=== PATIENT | female | born 1980 | race African-American/Black ===

== ENCOUNTER 2020-04-12 08:37 | Emergency (ER) | payer SELFPAY ==
[2020-04-12 10:37] LABS: ALBUMIN 4.4 g/dL (3.5-5.0); ALKALINE PHOSPHATASE 88 U/L (38-126); ANION GAP 9 (5-19); ASPARTATE AMINO TRANSFERASE 19 U/L (14-36); BILIRUBIN,DIRECT 0.3 mg/dL (0.0-0.4); BILIRUBIN,TOTAL 0.7 mg/dL (0.2-1.3); BLOOD UREA NITROGEN 8 mg/dL (7-20); CALCIUM 9.1 mg/dL (8.4-10.2); CARBON DIOXIDE 25 mmol/L (22-30); CHLORIDE 103 mmol/L (98-107); GLUCOSE 90 mg/dL (75-110); POTASSIUM 4.1 mmol/L (3.6-5.0); TOTAL PROTEIN 8.2 g/dL (6.3-8.2)
[2020-04-12 11:41] LABS: ABSOLUTE EOSINOPHILS # (AUTO) 0.1 10^3/uL (0.0-0.6); ABSOLUTE LYMPHOCYTES (AUTO) 2.1 10^3/uL (0.5-4.7); ABSOLUTE MONOCYTES (AUTO) 0.8 10^3/uL (0.1-1.4); ABSOLUTE NEUT (AUTO) 4.5 10^3/uL (1.7-8.2); BASOPHILS % (AUTO) 0.3 % (0-2); EOSINOPHILS % (AUTO) 0.7 % (0-6); HEMATOCRIT 18.2 % (36.0-47.0); LYMPHOCYTES % (AUTO) 27.8 % (13-45); MEAN CORPUSCULAR HEMOGLOBIN 15.1 pg (27.0-33.4); MEAN CORPUSCULAR HGB CONC 28.3 g/dL (32.0-36.0); MONOCYTES % (AUTO) 10.4 % (3-13); PLATELET COUNT 523 10^3/uL (150-450); RED BLOOD COUNT 3.42 10^6/uL (3.72-5.28); RED CELL DISTRIBUTION WIDTH 20.4 % (11.5-14.0); SEGMENTED NEUTROPHILS % (AUTO) 60.8 % (42-78); TOTAL CELLS COUNTED % (AUTO) 100 %; WHITE BLOOD COUNT 7.4 10^3/uL (4.0-10.5)
[2020-04-12] MEDS ORDERED: NORMAL SALINE 1000 ML 1,000 ML IV ONE (11:45)
[2020-04-12] MEDS ORDERED: MORPHINE SULFATE 10 MG/ML INJ IV ONE ×2 (11:48→14:00)
[2020-04-12] MEDS ORDERED: ONDANSETRON HCL INJ/PF 4 MG/2 ML SDV IV ONE ×3 (11:48→18:16)
[2020-04-12 11:50] LABS: HEMOGLOBIN 5.2 g/dL (12.0-15.5)
[2020-04-12 11:51] LABS: MEAN CORPUSCULAR VOLUME 53 fl (80-97)
[2020-04-12] MEDS ORDERED: PANTOPRAZOLE SODIUM 40 MG VIAL IV ONE (11:54)
[2020-04-12] MEDS ORDERED: NORMAL SALINE 250 ML IV PRN ×2 (11:55)
[2020-04-12 11:57] LABS: HYPOCHROMASIA 4+
[2020-04-12 11:58] LABS: ANISOCYTOSIS 2+; OVALOCYTES 1+; PLATELET COMMENT ADEQUATE; TARGET CELLS SLIGHT; TEAR DROP CELLS SLIGHT
[2020-04-12 12:39] LABS: APPEARANCE,URINE SLIGHTLY-CLOUDY; BILIRUBIN,URINE NEGATIVE (NEGATIVE); COLOR,URINE YELLOW; GLUCOSE, URINE NEGATIVE (NEGATIVE); KETONES,URINE NEGATIVE (NEGATIVE); LEUKOCYTE ESTERASE,URINE NEGATIVE (NEGATIVE); NITRITE,URINE NEGATIVE (NEGATIVE); PROTEIN,URINE NEGATIVE (NEGATIVE); URINE SPECIFIC GRAVITY 1.016
[2020-04-12 13:01] LABS: URINE AMPHETAMINES SCREEN NEGATIVE; URINE BARBITURATES SCREEN NEGATIVE; URINE BENZODIAZEPINES SCREEN NEGATIVE; URINE COCAINE SCREEN NEGATIVE; URINE MARIJUANA (THC) SCREEN UNCONFIRMED POSITIVE; URINE METHADONE SCREEN NEGATIVE; URINE PHENCYCLIDINE SCREEN NEGATIVE
[2020-04-12 13:08] LABS: PROTHROMBIN TIME 16.4 SEC (11.4-15.4)
[2020-04-12 13:09] LABS: PARTIAL THROMBOPLASTIN TIME 41.8 SEC (23.5-35.8)
--- NOTE | 2020-04-12 13:55 | RADIOLOGY REPORT (SQ) ---
EXAM DESCRIPTION: U/S NON OB PEL W/DOPPLER IMAGES COMPLETED DATE/TIME: 04/12/2020 1:35 pm REASON FOR STUDY: right lower quad/pelvis COMPARISON: None. TECHNIQUE: Dynamic and static grayscale images acquired of the pelvis via transabdominal approach an d recorded on PACS. Additional selected color Doppler and spectral images recorded. LIMITATIONS: None. FINDINGS: UTERUS: Contour normal. No mass. ENDOMETRIAL STRIPE: No focal or generalized thickening. No masses. CERVIX: No nabothian cysts. RIGHT OVARY AND DOPPLER: Normal size. No worrisome masses. Normal arterial vascular flow without evid ence for torsion. LEFT OVARY AND DOPPLER: Normal size. No worrisome masses. Normal arterial vascular flow without evide nce for torsion. FREE FLUID: None noted. OTHER: No other significant finding. MEASUREMENTS: UTERUS: 8.7 x 4.6 x 4.6 cm ENDOMETRIAL STRIPE: 11 mm RIGHT OVARY: 2.4 x 1.7 x 1.9 cm LEFT OVARY: 2.1 x 1.4 x 0.9 cm IMPRESSION: NORMAL PELVIC ULTRASOUND BY TRANSABDOMINAL TECHNIQUE. TECHNICAL DOCUMENTATION: JOB ID: [id number] 2010 [employer]- All Rights Reserved Rev Reading location - IP/workstation name: [email or web address]
--- NOTE | 2020-04-12 14:37 | RADIOLOGY REPORT (SQ) ---
EXAM DESCRIPTION: CT ABD/PELVIS WITH IV ORAL IMAGES COMPLETED DATE/TIME: 04/12/2020 2:07 pm REASON FOR STUDY: RLQ abd pain/pelvis COMPARISON: Pelvic ultrasound 04/12/2020 TECHNIQUE: CT scan of the abdomen and pelvis performed with intravenous and oral contrast using marialuisa israel scanning technique with dynamic intravenous contrast injection. Images reviewed with lung, soft t issue, and bone windows. Reconstructed coronal and sagittal MPR images reviewed. Delayed images for e valuation of the urinary system also acquired. All images stored on PACS. All CT scanners at this facility use dose modulation, iterative reconstruction, and/or weight based d osing when appropriate to reduce radiation dose to as low as reasonably achievable (ALARA). [facility]: Dose Right [facility]: CareDose [facility]: Dose Right [facility]: Teradose 4D [facility]: Granular CONTRAST TYPE AND DOSE: contrast/concentration: Isovue 350.00 mmol/ml; Total Contrast Delivered: 57. 0 ml; Total Saline Delivered: 65.0 ml RENAL FUNCTION: None required. The patient is less than 50 years old. RADIATION DOSE: CT Rad equipment meets quality standard of care and radiation dose reduction techniq ues were employed. CTDIvol: 4.8 mGy. DLP: 474 mGy-cm.. LIMITATIONS: None. FINDINGS: LOWER CHEST: No significant findings. No nodules or infiltrates. LIVER: Normal size. No masses. Mild prominence of the intrahepatic ducts which can be seen in post c holecystectomy patients. SPLEEN: Normal size. No focal lesions. PANCREAS: No masses. No significant calcifications. No adjacent inflammation or peripancreatic fluid collections. Pancreatic duct not dilated. GALLBLADDER: Surgically absent. ADRENAL GLANDS: No significant masses or asymmetry. RIGHT KIDNEY AND URETER: No solid masses. No significant calcification. No hydronephrosis or hydroure ter. LEFT KIDNEY AND URETER: No solid masses. No significant calcification. No hydronephrosis or hydrouret er. AORTA AND VESSELS: No aneurysm. No dissection. Renal arteries, SMA, celiac without stenosis. RETROPERITONEUM: No retroperitoneal adenopathy, hemorrhage or masses. BOWEL AND PERITONEAL CAVITY: No obstruction. No visualized masses. No free fluid. No inflammatory ch anges or thickening of bowel wall. APPENDIX: Not definitively visualized, though there are no acute inflammatory changes about the cecum . PELVIS: No significant masses. Normal bladder. No free fluid. ABDOMINAL WALL: No masses. No hernias. BONES: No significant or acute findings. OTHER: No other significant finding. IMPRESSION: No acute inflammatory changes in the abdomen or pelvis. TECHNICAL DOCUMENTATION: JOB ID: [id number] Quality ID # [id number]: Final reports with documentation of one or more dose reduction techniques (e.g., Au tomated exposure control, adjustment of the mA and/or kV according to patient size, use of iterative reconstruction technique) 2010 [employer]- All Rights Reserved Reading location - IP/workstation name: [email or web address]
[2020-04-12 20:40] LABS: ABSOLUTE LYMPHOCYTES (AUTO) 1.9 10^3/uL (0.5-4.7); ABSOLUTE MONOCYTES (AUTO) 0.8 10^3/uL (0.1-1.4); ABSOLUTE NEUT (AUTO) 6.2 10^3/uL (1.7-8.2); BASOPHILS % (AUTO) 0.2 % (0-2); EOSINOPHILS % (AUTO) 0.2 % (0-6); HEMATOCRIT 25.2 % (36.0-47.0); MEAN CORPUSCULAR HEMOGLOBIN 19.9 pg (27.0-33.4); MEAN CORPUSCULAR HGB CONC 30.3 g/dL (32.0-36.0); MONOCYTES % (AUTO) 9.4 % (3-13); PLATELET COUNT 421 10^3/uL (150-450); RED BLOOD COUNT 3.84 10^6/uL (3.72-5.28); RED CELL DISTRIBUTION WIDTH 34.8 % (11.5-14.0); SEGMENTED NEUTROPHILS % (AUTO) 69.2 % (42-78); TOTAL CELLS COUNTED % (AUTO) 100 %; WHITE BLOOD COUNT 8.9 10^3/uL (4.0-10.5)
[2020-04-12 21:25] LABS: MEAN CORPUSCULAR VOLUME 66 fl (80-97)
[2020-04-12 21:30] LABS: HEMOGLOBIN 7.6 g/dL (12.0-15.5)
[2020-04-12 21:41] LABS: ANISOCYTOSIS 4+; BURR CELLS SLIGHT; HYPOCHROMASIA 2+; OVALOCYTES 1+; POIKILOCYTOSIS 2+
[2020-04-12 21:42] LABS: PLATELET COMMENT ADEQUATE; POLYCHROMASIA SLIGHT; TARGET CELLS SLIGHT; TEAR DROP CELLS 1+
[2020-04-12 22:47] VITALS: BP 116/63
[2020-04-13 14:13] LABS: PATH REVIEW PATHOLOGIST REVIEWED
--- NOTE | 2020-04-15 16:11 | ER Document Report ---
Entered by LELO ALFRED SCRIBE 04/12/20 1103 Acting as scribe for:LEISA OGLESBY MD ED GI/ - General Information source: Patient <LEISA OGLESBY - Last Filed: 04/12/20 20:58> <WALSHJAYDON Trang - Last Filed: 04/12/20 22:20> - General Chief Complaint: Abdominal Pain Stated Complaint: ABDOMINAL PAIN Time Seen by Provider: 04/12/20 11:02 Notes: This 39-year-old female patient presents to the emergency department today with complaints of abdominal pain for the last 2 and a half days. Patient reports that the pain began Monday while she was at work at [employer] but she was able to work through the pain that day. She called out of work sick yesterday due to the pain, it has increased today which is why she is here. Patient states that when she is lying still the pain does not seem to be that bad, in fact might subside completely, but if she gets up and begins walking it begins to get very severe. She denies any vaginal discharge, vaginal bleeding, urinary symptoms, fevers, chills, or Covid exposure. Patient does mention that she has very heavy periods, her last menstrual period was at the beginning of March and it lasted for 2 weeks and was very heavy which is unusual. (LEISA OGLESBY) - Related Data Allergies/Adverse Reactions: No Known Allergies Allergy (Unverified 04/12/20 09:30) Past Medical History - General Information source: Patient - Social History Smoking Status: Current Every Day Smoker Cigarette use (# per day): Yes Chew tobacco use (# tins/day): No Frequency of alcohol use: Occasional Drug Abuse: None Occupation: [employer] Lives with: Family Family History: Reviewed & Not Pertinent Patient has homicidal ideation: No - Past Medical History Cardiac Medical History: Reports: Hx Hypertension Past Surgical History: Reports: Hx Cholecystectomy <LEISA OGLESBY - Last Filed: 04/12/20 20:58> Review of Systems - Review of Systems Constitutional: denies: Chills, Fever EENT: No symptoms reported Cardiovascular: No symptoms reported Respiratory: No symptoms reported Gastrointestinal: See HPI, Abdominal pain Genitourinary: denies: Frequency, Urgency Female Genitourinary: Irregular period - states heavy periods. last period was at beginning of march, lasted two weeks and was very heavy. denies: , Vaginal discharge, Vaginal bleeding Musculoskeletal: No symptoms reported Skin: No symptoms reported Hematologic/Lymphatic: No symptoms reported Neurological/Psychological: No symptoms reported -: Yes All other systems reviewed and negative <LEISA OGLESBY - Last Filed: 04/12/20 20:58> Physical Exam <LEISA OGLESBY - Last Filed: 04/12/20 20:58> - Vital signs Vitals: Temp Pulse Resp BP Pulse Ox 98.9 F 84 16 100/55 L 98 04/12/20 09:13 04/12/20 09:13 04/12/20 09:13 04/12/20 09:13 04/12/20 09:13 - Notes Notes: Physical Exam: General: Alert, appears uncomfortable. HEENT: Normocephalic. Atraumatic. PERRL. Extraocular movements intact. Oropharynx clear. Conjunctiva are pale bilaterally. Neck: Supple. Non-tender. Respiratory: No respiratory distress. Clear and equal breath sounds bilaterally. Cardiovascular: Regular rate and rhythm. Abdominal: Right lower quadrant tenderness to palpation. Positive rebound tenderness in the right lower quadrant. No distension. Normal Bowel Sounds. Back: No gross abnormalities. Extremities: Moves all four extremities. Upper extremities: Normal inspection. Normal ROM. Lower extremities: Normal inspection. No edema. Normal ROM. Neurological: Normal cognition. AAOx4. Normal speech. Psychological: Normal affect. Normal Mood. Skin: Hot to the touch. Dry. Normal color. Nailbeds are pale bilaterally. (LEISA OGLESBY) Course - Laboratory Result Diagrams: 04/12/20 11:18 04/12/20 10:00 - Transfer of Care Care transferred to following provider: Care transferred to Dr. Walsh with pending post PRBC trasfusion CBC./exam <LEISA OGLESBY - Last Filed: 04/12/20 20:58> - Laboratory Result Diagrams: 04/12/20 19:25 04/12/20 10:00 <JAYDON WALSH - Last Filed: 04/12/20 22:20> - Re-evaluation Re-evalutation: 04/12/20 19:48 Patient resting comfortably. Patient states she has no appetite at this time. Therefore she did not eat her food. At this time her repeat CBC post 2 units of packed red blood cell transfusion is pending. I discussed with patient if her blood counts has significantly improve and she is asymptomatic then see perhaps can be discharged home. Had a consultation with Dr. Chloe Harrington who is the OB canal equipment maintenance supervisor construction code administrator today and we discussed case knowing that we need to wait for the results of her most recent CBC and patient's medical condition at that time. Therefore I will be signing patient out to the oncoming doctor for further evaluation of blood test and abdominal evaluation. 04/12/20 19:49 The discussion I had with Dr. Harrington did include that we have not found any bleeding source of patient other than the fact the patient had a 21day menstrual cycle that was heavy during that 21-day period. Patient continued to work at [employer] the entire time and noted that she was getting weaker as this past week rolled in. Patient had to leave from work the other day when she developed abdominal pain. At this point we have no other objective reason for her pain based on the CT scans and ultrasounds that were done. However patient states her pain is better at this time and we will make a decision about whether or not she is disposition home or admitted to the hospital under the [employer] care. (LEISA OGLESBY) 04/12/20 22:15 Patient turned over to me by Dr. Oglesby pending repeat CBC and repeat discussion with UROGYNECOLOGY PHYSICIAN. Patient's hemoglobin increased to 7.6 after transfusion and I spoke to patient and examined her and she felt greatly improved and currently has no pain. I spoke to UROGYNECOLOGY PHYSICIAN Dr. Harrington who says that she will get patient into the office for follow-up possibly for IUD placement either tomorrow or the next day which patient is amenable to. This is reasonable plan as patient has no active bleeding and is currently asymptomatic. I gave Dr. Harrington patient's information and will discharge patient with contact info for Dr. Harrington's practice. I spoke to patient about return to ED precautions which she demonstrated understanding of. Patient denied having any other questions or concerns when I spoke to her and this was in agreement with discharge and follow-up plan. INR was increased which patient is to follow-up with primary doctor about. (JAYDON WALSH) - Vital Signs Vital signs: Temp Pulse Resp BP Pulse Ox 98.1 F 69 11 L 106/63 100 04/12/20 18:20 04/12/20 19:20 04/12/20 19:20 04/12/20 19:20 04/12/20 19:20 - Laboratory Laboratory results interpreted by me: 04/12/20 04/12/20 04/12/20 10:00 11:18 11:18 RBC 3.42 L Hgb 5.2 L Hct 18.2 L MCV 53 L MCH 15.1 L MCHC 28.3 L RDW 20.4 H Plt Count 523 H PT APTT Lipase 20.9 L Urine Urobilinogen Crossmatch See Detail 04/12/20 04/12/20 04/12/20 12:15 12:50 19:25 RBC Hgb 7.6 L D Hct 25.2 L MCV 66 L D MCH 19.9 L MCHC 30.3 L RDW 34.8 H Plt Count PT 16.4 H APTT 41.8 H Lipase Urine Urobilinogen 4.0 H Crossmatch 04/12/20 19:50 Laboratories show a hemoglobin of 5 hematocrit 18 elevated platelet count of 523. Patient has received 2 units of packed red blood cells at this time and a pending repeat CBC 1 hour post her transfusion this is pending at this time. (LEISA OGLESBY) - Diagnostic Test Radiology results interpreted by me: 04/12/20 19:53 Abdomen/Pelvis CT 04/12/20 00:00 IMPRESSION: No acute inflammatory changes in the abdomen or pelvis. Pelvis Ultrasound 04/12/20 11:44 IMPRESSION: NORMAL PELVIC ULTRASOUND BY TRANSABDOMINAL TECHNIQUE. CT of abdomen pelvis with oral and IV contrast shows no acute inflammatory ch anges in the abdomen or pelvis. Pelvis ultrasound also disclose a normal pelvic ultrasound by transabdominal technique. (LEISA OGLESBY) Discharge <LEISA OGLESBY - Last Filed: 04/12/20 20:58> <JAYDON WALSH - Last Filed: 04/12/20 22:20> - Discharge Clinical Impression: Anemia due to blood loss, Abnormal bleeding in menstrual cycle, Prolonged INR Condition: Good Disposition: HOME, SELF-CARE Additional Instructions: Pelvic Pain There are many causes of pain in the pelvic area. The cause could be the tubes, ovaries, uterus, intestines, appendix, pelvic muscles and connective tissue, or the urinary tract. The cause of your pelvic pain is not clear. However, it seems safe to treat you outside the hospital. If the pain sounds like a temporary problem, we sometimes wait to see if it goes away. Other patients may need additional tests, such as pelvic ultrasound or cultures. Conditions may change. Call us or come back for reexamination if any problems occur, such as: (1) Pain that becomes more severe, steady, or becomes concentrated in one specific area. Also, pain that is more severe with movement or coughing. (2) Vomiting that persists or becomes more frequent. (3) Blood in the vomitus, urine, or bowel movements. Blood in the stool may have a tarry or black appearance. (4) Shaking chills or fever greater than 100 degrees. (5) The abdomen becomes more distended or swollen. (6) Bowel movements cease. (7) Heavy vaginal bleeding. Call Dr. Harrington's office [phone] in the middle of the morning tomorrow to follow-up tomorrow or the next day in the office. If you have any recurrent bleeding, weakness, dizziness, fainting, or any other worsening or alarming sy mptoms return to the emergency department immediately. Follow-up with primary doctor within 1 week for further anemia work-up. Discussed your INR of 1.3 with your doctor, bring all test results to your doctor when you follow-up. This finding could mean that you are more susceptible to severe bleeding and you should return immediately if you have any other bleeding. Referrals: CHLOE HARRINGTON MD [ACTIVE PROVISIONAL STAFF] - Follow up tomorrow NIRAJ SANTIZO MD [ACTIVE STAFF] - Follow up in 1 week I personally performed the services described in the documentation, reviewed and edited the documentation which was dictated to the scribe in my presence, and it accurately records my words and actions.
== END 2020-04-12 23:17 | disposition home or self-care (01) ==
LOC: ER 08:37
DX: D50.0 Iron deficiency anemia secondary to blood loss (chronic) (principal); N92.1 Excessive and frequent menstruation with irregular cycle; R10.31 Right lower quadrant pain; R10.813 Right lower quadrant abdominal tenderness; F17.210 Nicotine dependence, cigarettes, uncomplicated; I10 Essential (primary) hypertension; Z90.49 Acquired absence of other specified parts of digestive tract
CPT/HCPCS: 96376; 99285; 96361; 96374; 96375; 86900; 86901; 36415; 36430; 86870; 86850; 86922; 84702; 83605; 83690; 85025; 85660; 85610; 85730; 80053; 81001; 80307; 86920; 76856; 93976; 74177; P9016; J2270; C9113; J2405; J7030